=== PATIENT | male | born 1980 | race Caucasian/White ===

== ENCOUNTER 2016-07-11 16:28 | Emergency (ER) | payer OTHER | END 2016-07-11 19:07 | disposition home or self-care (01) | LOC: FER 16:28 | DX: F41.8 Other specified anxiety disorders (principal); I10 Essential (primary) hypertension; F31.9 Bipolar disorder, unspecified; F43.10 Post-traumatic stress disorder, unspecified; F17.210 Nicotine dependence, cigarettes, uncomplicated; Z79.899 Other long term (current) drug therapy | CPT/HCPCS: 93005 ==